=== PATIENT | female | born 1975 | race African-American/Black ===

== ENCOUNTER 2020-12-17 21:43 | Emergency (ER) | payer BC, SELFPAY ==
--- NOTE | ~2020-12-17 | CT_ITS ---
EXAMINATION: CT ANGIOGRAM OF THE CHEST WITH AND WITHOUT CONTRAST (CT PULMONARY ANGIOGRAM FOR PE) CLINICAL INFORMATION: Reason for Exam Left pleuritic chest pain, rule out PE COMPARISON: None TECHNIQUE: Prior to contrast administration, noncontrast localization images were obtained. Subsequently, multidetector volumetric imaging was performed from the thoracic inlet to below the diaphragms following the administration of 80 mL Omnipaque 350 intravenous contrast. No contrast reaction reported Sagittal, coronal, and MIP oblique sagittal reformatted images were obtained on the CT workstation, uploaded to PACS, and reviewed. This CT examination was performed using dose optimization techniques as appropriate, variously including the following: *Automated exposure control *Adjustment of mA and/or kV according to patient size (this includes techniques or standardized protocols for targeted exams where dose is matched to indication/reason for exam; i.e. extremities or head) *Use of iterative reconstruction technique Total exam dose-length product 560 mGy-cm FINDINGS: QUALITY OF STUDY/CONTRAST BOLUS: Satisfactory. PULMONARY ARTERIES: No central or segmental pulmonary emboli. THORACIC AORTA: No aneurysm or dissection. LUNG: No focal consolidation, nodules or masses. The central airways are patent. PLEURA: No pleural effusion or pneumothorax. MEDIASTINUM: Normal heart size. No pericardial effusion. No hilar or mediastinal lymphadenopathy. No evidence of septal bowing or right heart strain. CHEST WALL/AXILLA: No axillary or internal mammary lymphadenopathy. OSSEOUS STRUCTURES: No acute or suspicious osseous abnormality. UPPER ABDOMEN: Cholecystectomy. No reflux of contrast into the hepatic veins to suggest elevated right heart pressures. CT/CT angio chest PE protocol IMPRESSION: No pulmonary embolism or other acute intrathoracic abnormality. VTE: negative
--- NOTE | ~2020-12-17 | XR_ITS ---
EXAMINATION: PORTABLE CHEST 1 VIEW CLINICAL INFORMATION: CHEST PAIN . COMPARISON: No recent pertinent prior studies are available for comparison. TECHNIQUE: Portable frontal view of the chest was obtained. FINDINGS: The lungs are mildly hypoexpanded. No focal infiltrate, effusion, edema, or pneumothorax. Cardiac and mediastinal silhouettes are within normal limits for technique. No acute bony abnormality seen. XR/XR chest 1V IMPRESSION: No evidence of acute disease.
--- NOTE | 2020-12-17 21:45 | ECG_ITS ---
Test Reason : CHEST PAIN Blood Pressure : / mmHG Vent. Rate : 087 BPM Atrial Rate : 087 BPM P-R Int : 150 ms QRS Dur : 072 ms QT Int : 356 ms P-R-T Axes : 045 027 -34 degrees QTc Int : 428 ms Normal sinus rhythm Nonspecific T wave abnormality Abnormal ECG No previous ECGs available Referred By: Generic ED Physician Electronically Signed By:VIDHI GRADY MD
[2020-12-17 22:13] VITALS: BP 119/58; PULSE 86; RESP 100; TEMP 36.7; O2SAT 85; BMI 50.5
[2020-12-17 22:33] LABS: MANUAL DIFF FLAG NO
[2020-12-17 22:39] LABS: Basophils Percent Auto 0.4 % (0-2); Eosinophils Absolute Auto 0.2 X10*3/uL (0.0-0.4); Hematocrit 35.4 % (37-47); Hemoglobin 11.3 g/dl (12.0-16.0); Imm Gran Abs Auto 0.03 X10*3/uL (0.00-0.03); Imm Gran Pct Auto 0.3 % (0.0-0.4); Lymphocytes Absolute Auto 2.9 X10*3/uL (1.2-4.9); Lymphocytes Percent Auto 27.9 % (20-40); Mean Corpuscular HGB Conc 31.9 g/dl (31.0-35.0); Mean Corpuscular Hemoglobin 28.9 pg (27.0-33.0); Mean Corpuscular Volume 90.5 fL (80-98); Mean Platelet Volume 11.6 fL (9.4-12.3); Monocytes Absolute Auto 0.8 X10*3/uL (0.1-1.2); Monocytes Percent Auto 7.7 % (2-11); Neutrophils Absolute Auto 6.4 X10*3/uL (2.0-8.3); Neutrophils Percent Auto 61.7 % (45-73); Platelet Count 235 X10*3/uL (160-400); Red Blood Count 3.91 X10*6/uL (4.20-5.50); Red Cell Distribution Width 13.6 % (11.0-16.0); White Blood Count 10.4 X10*3/uL (4.8-10.8)
[2020-12-17 22:51] LABS: Anion Gap 14 (12-20); Blood Urea Nitrogen 11 mg/dL (9-16); Calcium 8.6 mg/dL (8.4-10.2); Carbon Dioxide 24 mmol/L (22-29); Chloride 106 mmol/L (96-108); Creatinine Clr Calc Pharmacy 106.8; Estimated Glomerular Filt Rate > 60; Glucose Random 106 mg/dL (60-115); Potassium 3.6 mmol/L (3.3-5.1); Sodium 140 mmol/L (135-145)
[2020-12-17 22:53] LABS: Troponin-I High Sensitivity < 3.5 ng/L (<3.5-17.0)
[2020-12-18] VITALS: BP 137/83; PULSE 75; RESP 18; TEMP 36.4; O2SAT 100
--- NOTE | 2020-12-18 00:51 | ED.CHESTPAIN ---
HPI - Chest Pain General Chief Complaint: Chest Pain Stated Complaint: Chest pain Time Seen by Provider: 12/18/20 00:37 Source: patient Mode of arrival: ambulatory Limitations: no limitations History of Present Illness HPI narrative: 44-year-old female who presents emergency department for evaluation of left-sided pleuritic chest pain. The patient states that she is a traveling [employer] working at [employer]. She flew here from [place] 2 weeks prior. 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 when she had a gradual onset of left-sided chest pain. She states the pain was located under her left breast and then radiated to the center of her chest into her back. The pain became progressively worse. She describes the pain is an intermittent sharp pain which is worse with breathing. The pain is 8/10 at its worst. She was given 2 aspirin at work with no improvement of her pain. She states she does not feel short of breath at rest but does feel short of breath with exertion. She denied any pain or swelling in her lower extremities. Related Data Allergies Allergy/AdvReac Type Severity Reaction Status Date / Time No Known Allergies Allergy Verified 12/17/20 22:11 Review of Systems Review of Systems: Yes all other systems are reviewed and are negative [facility] Past Medical History [facility] Narrative: Past medical history: None. Past surgical history: Cholecystectomy, hysterectomy. Social history: The patient is a traveling [employer], she traveled here from [place] 2 weeks prior. She denies tobacco, alcohol and drug use. Medical History (Updated 12/18/20 @ 02:25 by Jeremy Grande MD) No known health problems Social History Social History Alcohol intake: never Patient Tobacco Use Status: Never used Tobacco Use of substances other than those prescribed or required for medical reasons: No Advance Directives: No Physical Exam Vital Signs: Vital Signs: Last Vital Signs Temp 97.5 F 12/18/20 00:00 Pulse 75 12/18/20 00:00 Resp 18 12/18/20 00:00 BP 137/83 12/18/20 00:00 Pulse Ox 100 12/18/20 00:00 Body Mass Index 50.5 Const: Other: Very pleasant and cooperative female patient, does not appear to be in distress, answers all questions appropriately. HENMT: Head: Yes normal to inspection, Yes normocephalic and Yes atraumatic Ears: external ears normal General nose exam: Normal external nose present Face and sinus: Yes normal facial exam Mouth: Normal oral and palatal mucosa present Throat: Yes posterior oropharynx normal Eyes: General: appearance normal, both eyes and all related structures Pupils: Equal, round and reactive pupils present Neck: Neck: Yes normal visual inspection, Yes no lymphadenopathy, Yes trachea midline and Yes supple Chest: Chest palpation & inspection: normal inspection of the chest and tenderness (Left anterior chest wall tenderness) Resp: Effort & Inspection: normal respiratory effort and able to speak in complete sentences Auscultation: clear to auscultation bilaterally Cardio: Rate: regular rate Rhythm: regular rhythm Heart sounds: S1 normal heart sound present, S2 normal heart sound present and no murmurs GI: Inspection: Yes normal to inspection Palpation (GI): Soft to palpation, nontender and no guarding Auscultation: normal bowel sounds : General: Yes no CVA tenderness Back/Spine/Pelvis: Back: no CVA tenderness Skin: General skin exam: no rashes or lesions noted Neuro: Cranial nerves: Yes CN's II-XII intact bilaterally and Yes Equal, round and reactive pupils present Cognition (Neuro): normal cognition Motor exam (neuro): 5/5 motor strength present throughout Extrem: General: Yes normal to inspection Psych: Appearance: grossly normal Speech and movement: Normal speech and movement present Affect: normal affect Attitude: cooperative Thought process: Normal thought process present Thought content: Normal thought content present Course Course Course Narrative: 44-year-old female who presents emergency department for evaluation of gradual onset of left-sided pleuritic chest pain. The patient recently flew from [facility] to 2 weeks prior. The patient's vital signs revealed pulse of 75 and an O2 saturation of 100% on room air. patient's exam did reveal left-sided chest wall tenderness. Laboratory evaluation revealed a normal CBC and normal CMP. The patient's troponin was below detectable limits. Chest x-ray was unremarkable. Twelve EKG revealed inverted T-waves in V 3 through V 5 as well as in lead 3 otherwise was unremarkable. Given her recent trip from [place] and the sudden onset of her pleuritic chest pain, concerned that she may have a pulmonary embolism therefore a CT pulmonary angiogram PE protocol was ordered. Patient's pain was treated with Toradol 30 mg IV. She was also ordered to get normal saline IV x1 L. 0223: Patient's CT pulmonary angiogram was negative for PE. Patient's pain is most likely caused by pleurisy or costochondritis. I did discuss this with the patient. She is feeling better after the IV Tylenol. She was advised to take ibuprofen and Tylenol. She was discharged home. MDM - Chest Pain Lab Data Result diagrams: 12/17/20 22:29 12/17/20 22:29 Labs: Lab Results 12/17/20 12/17/20 12/17/20 Range/Units 22:29 22:29 22:29 WBC 10.4 (4.8-10.8) X10*3/uL RBC 3.91 L (4.20-5.50) X10*6/uL Hgb 11.3 L (12.0-16.0) g/dl Hct 35.4 L (37-47) % MCV 90.5 (80-98) fL MCH 28.9 (27.0-33.0) pg MCHC 31.9 (31.0-35.0) g/dl RDW 13.6 (11.0-16.0) % Plt Count 235 (160-400) X10*3/uL MPV 11.6 (9.4-12.3) fL Immature Gran % (Auto) 0.3 (0.0-0.4) % Neut % (Auto) 61.7 (45-73) % Lymph % (Auto) 27.9 (20-40) % [place] % (Auto) 7.7 (2-11) % Eos % (Auto) 2.0 (0-4) % Baso % (Auto) 0.4 (0-2) % Lymph # (Auto) 2.9 (1.2-4.9) X10*3/uL [place] # (Auto) 0.8 (0.1-1.2) X10*3/uL Eos # (Auto) 0.2 (0.0-0.4) X10*3/uL Baso # (Auto) 0.0 (0.0-0.2) X10*3/uL Abs Immat Gran (auto) 0.03 (0.00-0.03) X10*3/uL Absolute Neuts (auto) 6.4 (2.0-8.3) X10*3/uL Absolute Nucleated RBC 0.000 (0.0-0.012) X10*3/uL Nucleated RBC % (auto) 0.0 (0.0-0.2) /100WBC Sodium 140 (135-145) mmol/L Potassium 3.6 (3.3-5.1) mmol/L Chloride 106 (96-108) mmol/L Carbon Dioxide 24 (22-29) mmol/L Anion Gap 14 (12-20) BUN 11 (9-16) mg/dL Creatinine 0.85 (0.5-1.4) mg/dL Estim Creat Clear Calc 106.8 Estimated GFR > 60 Random Glucose 106 (60-115) mg/dL Calcium 8.6 (8.4-10.2) mg/dL Troponin I High Sens < 3.5 (<3.5-17.0) ng/L ECG Data ECG #1: Interpretation: 2159: Normal sinus rhythm with a rate of 87, normal DE, QRS and QTC intervals inverted T-wave in lead 3, V 3, V4 and V5. No ST segment elevation, no ST segment depression, no PACs, no PVCs. Discharge Plan Discharge Clinical Impression: Pleurisy, Acute costochondritis Patient Disposition: Home, Self-Care Instructions: Pleurisy (ED), Costochondritis (ED) Additional Instructions: Your laboratory evaluation and EKG were unremarkable. The CT pulmonary angiogram of your chest revealed no blood clots or other abnormalities. Your symptoms are consistent with either inflammation of the lining of your lung (pleurisy) or inflammation of the joints and muscles of your chest (costochondritis). Take ibuprofen 200 mg pills, 3 pills every 6 hours for the next 4 days then as needed for pain. Take Tylenol (acetaminophen) 500 mg pills, 2 pills every 4 to 6 hours as needed for pain. Follow-up with your doctor in 2 days. Please return to the emergency department if your symptoms get worse or if you develop any symptoms that are concerning to you.
[2020-12-18] MEDS: Ketorolac Tromethamine 15 MG/ML VIAL 30 MG IVPUSH (01:18)
[2020-12-18] MEDS: 0.9 % Sodium Chloride 1,000 ML 999 ML IV (01:20)
[2020-12-18] MEDS: iohexoL 350 MG/ML 100 ML INFUS..BTL 85 ML IV (01:22)
== END 2020-12-18 02:43 | disposition home or self-care (01) ==
PROVIDERS: Emergency Provider Emergency Medicine Emergency Medical Services
DX: R09.1 Pleurisy (principal); M94.0 Chondrocostal junction syndrome [Tietze]
CPT/HCPCS: 36415; 71045; 71275; 80048; 84484; 85025; 93005; 96361; 96374; 99284; 99285; J1885; Q9967